=== PATIENT | female | born 1970 | race Caucasian/White ===

== ENCOUNTER 2017-05-21 04:28 | Emergency (ER) | payer OTHER ==
[2017-05-21 05:56] VITALS: BP 124/75
== END 2017-05-21 05:56 | disposition home or self-care (01) ==
LOC: ED 04:28
DX: S20.212A Contusion of left front wall of thorax, initial encounter (principal); G89.29 Other chronic pain; J44.9 Chronic obstructive pulmonary disease, unspecified; E78.5 Hyperlipidemia, unspecified; M19.90 Unspecified osteoarthritis, unspecified site; X58.XXXA Exposure to other specified factors, initial encounter; Y93.89 Activity, other specified; Y99.8 Other external cause status; Y92.89 Other specified places as the place of occurrence of the external cause
CPT/HCPCS: J1885

== ENCOUNTER 2018-12-18 00:54 | Emergency (ER) | payer OTHER ==
[~2018-12-18] VITALS: Ht 160 cm; Wt 58.1 kg
[2018-12-18 00:58] VITALS: Ht 160 cm; Wt 58.1 kg
[2018-12-18 02:07] VITALS: BP 116/76
== END 2018-12-18 02:07 | disposition home or self-care (01) ==
LOC: ED 00:54
DX: M70.32 Other bursitis of elbow, left elbow (principal); Y93.89 Activity, other specified; J44.9 Chronic obstructive pulmonary disease, unspecified; E78.00 Pure hypercholesterolemia, unspecified; M19.90 Unspecified osteoarthritis, unspecified site; F41.9 Anxiety disorder, unspecified
CPT/HCPCS: J7512